=== PATIENT | female | born 1955 | race American Indian/Alaskan Native ===

== ENCOUNTER 2017-06-04 10:05 | Emergency (ER) | payer SELFPAY ==
[2017-06-04 11:58] LABS: Blood Urea Nitrogen 12 mg/dL (7-17); Calcium 9.4 mg/dL (8.4-10.2); Carbon Dioxide 24 mmol/L (22-30); Chloride 99.1 mmol/L (98-107); Glucose 109 mg/dL (65-100); Sodium 138 mmol/L (137-145)
[2017-06-04 12:09] LABS: Basophils % (Auto) 1.4 % (0.0-1.8); Eosinophils % (Auto) 3.1 % (0.0-4.3); Hematocrit 41.4 % (30.3-42.9); Hemoglobin 14.1 gm/dl (10.1-14.3); Mean Corpuscular HGB Conc 34 % (30-34); Mean Corpuscular Hemoglobin 33 pg (28-32); Mean Corpuscular Volume 97 fl (79-97); Platelet Count 272 K/mm3 (140-440); Red Blood Count 4.29 M/mm3 (3.65-5.03); Red Cell Distribution Width 14.5 % (13.2-15.2); White Blood Count 8.9 K/mm3 (4.5-11.0)
[2017-06-04 12:41] LABS: Anion Gap 20 mmol/L; Potassium 4.6 mmol/L (3.6-5.0)
[2017-06-04] MEDS ORDERED: ZESTRIL PO ONE (13:03)
[2017-06-04] MEDS ORDERED: HCTZ PO ONE (13:03)
--- NOTE | 2017-06-04 13:04 | Emergency Department Report ---
ED General Adult HPI - General Chief complaint: High BP Stated complaint: HEADACHE Time Seen by Provider: 06/04/17 12:51 Source: patient, family, RN notes reviewed, old records reviewed (seen for same in 2012 ) Mode of arrival: Ambulatory Limitations: No Limitations - History of Present Illness Initial comments: PT states she has a hx of htn. PT states she ran out of her bp medication ( lisinopril/hct 10/12.5mg) 5 days ago. PT states she has an appointment on to establish primary care. PT states her bp is usually well controlled on her bp medication. PT states when she is out of her medication, she will get intermittent mild headache. PT states today she felt like her bp was elevated so she came to the ED to get RX refill. PT states her headache has now resolved. PT denies weakness, cp or sob. MD Complaint: bp refill -: Gradual, days(s) Location: head Severity scale (0 -10): 0 (was 4/10 earlier) Quality: aching Consistency: now resolved Improves with: medication (bp medication ) Associated Symptoms: denies: confusion, chest pain, nausea/vomiting, shortness of breath, syncope, weakness Treatments Prior to Arrival: none - Related Data Previous Rx's Medication Instructions Recorded Last Taken Type Lisinopril/Hydrochlorothiazide 1 tab PO QDAY #30 tablet 06/04/17 Unknown Rx [Zestoretic 10-12.5 mg] Allergies Allergy/AdvReac Type Severity Reaction Status Date / Time No Known Allergies Allergy Unverified 06/17/15 09:34 ED Review of Systems ROS: Stated complaint: HEADACHE Other details as noted in HPI Comment: All other systems reviewed and negative Constitutional: denies: fever Respiratory: denies: shortness of breath, SOB with exertion, SOB at rest Cardiovascular: denies: chest pain, syncope Gastrointestinal: denies: nausea, vomiting Neurological: headache. denies: weakness, numbness, paresthesias, confusion, abnormal gait ED Past Medical Hx - Past Medical History Hx Hypertension: Yes Additional medical history: Hyperthyroidism - Social History Smoking Status: Current Every Day Smoker (1/2 ppd) Substance Use Type: Alcohol - Medications Home Medications: Home Medications Medication Instructions Recorded Confirmed Last Taken Type Lisinopril/Hydrochlorothiazide 1 tab PO QDAY #30 tablet 06/04/17 Unknown Rx [Zestoretic 10-12.5 mg] ED Physical Exam - General Limitations: No Limitations General appearance: alert, in no apparent distress - Head Head exam: Present: atraumatic, normocephalic, normal inspection - Eye Eye exam: Present: normal appearance, PERRL, EOMI. Absent: conjunctival injection - ENT ENT exam: Present: normal exam, mucous membranes moist, normal external ear exam - Neck Neck exam: Present: normal inspection, full ROM - Respiratory Respiratory exam: Present: normal lung sounds bilaterally. Absent: respiratory distress, wheezes, chest wall tenderness - Cardiovascular Cardiovascular Exam: Present: regular rate, normal rhythm, normal heart sounds - GI/Abdominal GI/Abdominal exam: Present: soft. Absent: tenderness - Extremities Exam Extremities exam: Present: normal inspection, full ROM - Back Exam Back exam: Present: normal inspection, full ROM. Absent: tenderness, CVA tenderness (R), CVA tenderness (L) - Neurological Exam Neurological exam: Present: alert, oriented X3, CN II-XII intact, normal gait - Expanded Neurological Exam Expanded Patient oriented to: Present: person, place, time Speech: Present: fluid speech Motor strength exam: RUE: 5, LUE: 5, RLE: 5, LLE: 5 Best Eye Response ([place]): (4) open spontaneously Best Motor Response ([place]): (6) obeys commands Best Verbal Response ([place]): (5) oriented Franco Total: 15 - Psychiatric Psychiatric exam: Present: normal affect, normal mood - Skin Skin exam: Present: warm, dry, intact, normal color ED Course Vital Signs 06/04/17 06/04/17 10:45 12:48 Temperature 98.5 F Pulse Rate 91 H Respiratory 18 16 Rate Blood Pressure 174/116 O2 Sat by Pulse 100 Oximetry - Reevaluation(s) Reevaluation #1: 06/04/17 13:04 Triage initiated orders. PT refused head ct. PT neurologically intact. PT states she is only here for RX refill. PT aware RX will be given and she will need to keep her appointment with PCP. Smoking cessation encouraged, however, pt not ready to quit. PT has no questions at this time. - Pulse Oximetry Interpretation Digit-Finger Initial Pulse Oximetry Readin Actions Taken: none ED Medical Decision Making - Lab Data Result diagrams: 06/04/17 11:27 06/04/17 11:27 Lab Results 06/04/17 06/04/17 06/04/17 Range/Units 11:27 11:27 11:27 WBC 8.9 (4.5-11.0) K/mm3 RBC 4.29 (3.65-5.03) M/mm3 Hgb 14.1 (10.1-14.3) gm/dl Hct 41.4 (30.3-42.9) % MCV 97 (79-97) fl MCH 33 H (28-32) pg MCHC 34 (30-34) % RDW 14.5 (13.2-15.2) % Plt Count 272 (140-440) K/mm3 Lymph % (Auto) 31.4 (13.4-35.0) % [place] % (Auto) 8.1 H (0.0-7.3) % Eos % (Auto) 3.1 (0.0-4.3) % Baso % (Auto) 1.4 (0.0-1.8) % Lymph # 2.8 (1.2-5.4) K/mm3 [place] # 0.7 (0.0-0.8) K/mm3 Eos # 0.3 (0.0-0.4) K/mm3 Baso # 0.1 (0.0-0.1) K/mm3 Seg Neutrophils % 56.0 (40.0-70.0) % Seg Neutrophils # 5.0 (1.8-7.7) K/mm3 Sodium 138 (137-145) mmol/L Potassium 4.6 (3.6-5.0) mmol/L Chloride 99.1 (98-107) mmol/L Carbon Dioxide 24 (22-30) mmol/L Anion Gap 20 mmol/L BUN 12 (7-17) mg/dL Creatinine 0.4 L (0.7-1.2) mg/dL Estimated GFR > 60 ml/min BUN/Creatinine Ratio 30.00 % Glucose 109 H (65-100) mg/dL Calcium 9.4 (8.4-10.2) mg/dL Troponin T < 0.010 (0.00-0.029) ng/mL - EKG Data -: EKG Interpreted by Me (and ED ) EKG shows normal: sinus rhythm Rate: normal (85 bpm ) - Differential Diagnosis renal insuff. htn tobacco abuse Critical Care Time: No Critical care attestation.: If time is entered above; I have spent that time in minutes in the direct care of this critically ill patient, excluding procedure time. ED Disposition Clinical Impression: Tobacco abuse HTN (hypertension) Qualifiers: Hypertension type: essential hypertension Qualified Code(s): I10 - Essential ( primary) hypertension Disposition: TO HOME OR SELFCARE Is pt being admited?: No Does the pt Need Aspirin: No Condition: Stable Instructions: Hypertension (ED), How to Stop Smoking (ED) Additional Instructions: Take your bp medication as prescribed Keep your appointment with your PCP Return to the ED if you develop a severe headache, weakness, chest pain or shortness of breath Prescriptions: Lisinopril/Hydrochlorothiazide [Zestoretic 10-12.5 mg] 1 tab PO QDAY #30 tablet Referrals: PRIMARY CAREMD [Primary Care Provider] - 3-5 Days POOJA WILCOX MD [Staff Physician] - 3-5 Days Time of Disposition: 13:07
[2017-06-04 13:21] VITALS: BP 212/119
== END 2017-06-04 13:21 | disposition home or self-care (01) ==
LOC: ED 10:05
DX: I10 Essential (primary) hypertension (principal); F17.200 Nicotine dependence, unspecified, uncomplicated
CPT/HCPCS: 36415; 80048; 84484; 85025; 93005; 93010; 99283

== ENCOUNTER 2021-04-15 12:03 | Emergency (ER) | payer SELFPAY ==
[2021-04-15] MEDS ORDERED: cloNIDine 0.2 MG TAB PO ONE (16:23)
--- NOTE | 2021-04-15 16:28 | Emergency Department Report ---
HPI - General Chief Complaint: Headache Time Seen by Provider: 04/15/21 16:12 - HPI HPI: This is a 65-year-old -[place] female presents to the emergency department with complaint of elevated and uncontrolled blood pressure. The patient admits to noncompliance with blood pressure medication over the past few years. She was on some dose of lisinopril but stopped taking it because "I felt fine and did not need it." The patient also has a history of hyperthyroidism, but has not had her thyroid function checked recently and once again says "my thyroid is fine." The patient does not have a primary care physician. She is a tobacco smoker but denies any illicit drug use. She drinks a few cups of coffee per day. Patient does admit to having some intermittent generalized headaches over the past 4 days. Currently she just says it feels like a pressure sensation and is very "mild." She denies any vision change, slurred speech, numbness or paresthesias, focal weakness, or any other neurological deficits. However, patient also admits to some nonspecific lightheadedness over the past few days as well. She denies any fever, chest pain, cough, shortness of breath, lower extremity swelling, abdominal pain, dysuria. The patient checked her blood pressure at [facility] yesterday for the first time in a long while and found it to be quite elevated. She has not taken anything for symptoms prior to presentation. It should be noted that the patient allowed for triage vitals to be taken, and she allowed for an EKG to be done. However, the patient will not allow for labs to be drawn, and IV to be placed, to be placed on a shelter monitor other than rechecking her blood pressure. ED Past Medical Hx - Past Medical History Previous Medical History?: Yes Hx Hypertension: Yes Additional medical history: Hyperthyroidism - Surgical History Past Surgical History?: No - Social History Smoking Status: Current Every Day Smoker (1/2 ppd) Substance Use Type: Alcohol - Medications Home Medications: Home Medications Medication Instructions Recorded Confirmed Last Taken Type Lisinopril/Hydrochlorothiazide 1 tab PO QDAY #30 tablet 06/04/17 Unknown Rx [Zestoretic 10-12.5 mg] amLODIPine 10 mg PO DAILY #30 tab 04/15/21 Unknown Rx ED Review of Systems ROS: Stated complaint: HEADACHE, LIGHT HEADED Other details as noted in HPI Comment: All other systems reviewed and negative Constitutional: denies: chills, fever Eyes: denies: eye pain, vision change ENT: denies: ear pain, throat pain Respiratory: denies: cough, shortness of breath Cardiovascular: denies: chest pain, palpitations Gastrointestinal: denies: abdominal pain, vomiting Genitourinary: denies: dysuria, discharge Musculoskeletal: denies: back pain, arthralgia Skin: denies: rash, lesions Neurological: headache (Intermittent), other (Lightheadedness) Physical Exam - Physical Exam Vital Signs: Vital Signs 04/15/21 12:30 Temperature 98.8 F Pulse Rate 115 H Respiratory 18 Rate Blood Pressure 223/115 [Right] O2 Sat by Pulse 99 Oximetry Physical Exam: GENERAL: The patient is well-developed well-nourished. HENT: Normocephalic. Atraumatic. Patient has moist mucous membranes. EYES: Extraocular motions are intact. No nystagmus. NECK: Supple. Trachea is midline. CHEST/LUNGS: Clear to auscultation. There is no respiratory distress noted. HEART/CARDIOVASCULAR: Regular. There is no tachycardia. There is no murmur. ABDOMEN: Abdomen is soft, nontender. Patient has normal bowel sounds. SKIN: Skin is warm and dry. NEURO: The patient is awake, alert, and oriented. The patient is cooperative. The patient has no focal neurologic deficits. Normal speech. Cranial nerves II through XII grossly intact. No facial asymmetry. MUSCULOSKELETAL: There is no tenderness or deformity. There is no limitation range of motion. ED Course Vital Signs 04/15/21 12:30 Temperature 98.8 F Pulse Rate 115 H Respiratory 18 Rate Blood Pressure 223/115 [Right] O2 Sat by Pulse 99 Oximetry ED Medical Decision Making - EKG Data -: EKG Interpreted by Me EKG shows normal: sinus rhythm, axis, intervals, QRS complexes, ST-T waves Rate: normal - EKG Data When compared to previous EKG there are: previous EKG unavailable Interpretation: normal EKG - Medical Decision Making This patient presents to the emergency department with a complaint of elevated and uncontrolled blood pressure. Secondarily she admits to a generalized headache and some lightheadedness that has been going on intermittently, although the patient denies any significant symptoms at the time of my examination. Patient's blood pressure was as high as 244/122. Patient allowed an EKG to be done that did not show any morphology consistent with ST elevation myocardial infarction. The patient would not allow any labs to be drawn. She would not allow an IV to be placed for IV antihypertensive medication. The patient says that she only wants to get a prescription for blood pressure medication and to be discharged home. I explained to the patient that given the extremely elevated blood pressure, and her intermittent symptoms, that we need to get some blood work including a CBC, metabolic panel and TSH. I explained that given the blood pressure level, she is at risk for heart attack, stroke, kidney failure, among other conditions. The patient understands but has a normal decision-making capacity and will not allow for any blood to be drawn or an IV to be placed. The patient did allow me to give a dose of oral antihypertensive medication so the patient was given 0.2 mg of Catapres. 1 hour later her blood pressure came down to about 210 systolic. She would not allow for any further medication to be given. Once again the patient was notified that given her symptoms and uncontrolled blood pressure that she is at risk for heart attacks, stroke, debility, coma or even . She is still decided to sign out AGAINST MEDICAL ADVICE. Patient understands that she can return to the emergency department if she changes her mind about further evaluation and treatment, or with any acute distress. Jhoan HIDALGO, I have still given the patient a prescription for amlodipine. She was previously on Zestoretic, but without lab work I am hesitant to place her on lisinopril and hydrochlorothiazide as I do not know her kidney function or electrolytes. We also discussed staying away from foods that are high in salt and caffeinated products, quitting smoking, and keeping a blood pressure log. She has been given outpatient referrals for primary care. The patient was seen ambulatory as she left the emergency department and both appears and feels stable. Critical Care Time: No Critical care attestation.: If time is entered above; I have spent that time in minutes in the direct care of this critically ill patient, excluding procedure time. ED Disposition Clinical Impression: Hypertensive urgency, History of hyperthyroidism Disposition: DC-07 LEFT AGAINST MED ADVICE Is pt being admited?: No Instructions: Managing Your Hypertension, Hypertension, Adult Additional Instructions: Please return to the emergency department immediately if you change your mind about further evaluation and treatment, or with any acute distress. Please try and stay away from foods that are high in salt and caffeinated products. Keep a blood pressure log. I am starting you on a blood pressure medication called Norvasc/amlodipine. This medication is taken once per day, usually in the morning. Please follow-up with a primary care physician in the next few days. I have given you a referral for a local primary care physician, Dr. Ellis, and a primary care clinic, [facility]. Prescriptions: amLODIPine 10 mg PO DAILY #30 tab Referrals: EJ ELLIS MD [Staff Physician] - 2-3 Days [facility] [Provider Group] - 2-3 Days Forms: AMA Form Time of Disposition: 17:35
[2021-04-15 18:41] VITALS: BP 204/108
--- NOTE | 2021-04-16 10:45 | Electrocardiograph Report ---
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
== END 2021-04-15 18:00 | disposition left against medical advice (07) ==
LOC: ED 12:03
DX: I16.0 Hypertensive urgency (principal); E05.90 Thyrotoxicosis, unspecified without thyrotoxic crisis or storm; I10 Essential (primary) hypertension; F17.200 Nicotine dependence, unspecified, uncomplicated; Z72.89 Other problems related to lifestyle; Z79.899 Other long term (current) drug therapy
CPT/HCPCS: 93005; 99283